=== PATIENT | male | born 1965 | race Caucasian/White ===

== ENCOUNTER 2017-04-21 14:31 | Emergency (ER) | payer BC, OTHER ==
[~2017-04-21] VITALS: Ht 175.3 cm; Wt 96.8 kg
[2017-04-21 14:42] VITALS: TEMP 36.9; Ht 175.3 cm; Wt 96.8 kg
--- NOTE | 2017-04-21 14:59 | EMERGENCY ROOM VISIT NOTE ---
History Report prepared by Tony: Major Wells Under the Supervision of: Dr. Lionel Kirkpatrick M.D. First contact with patient: 14:45 Chief Complaint: HEAD PAIN Stated Complaint: CUT ON HEAD,NAUSEA,DIZZY,HEADACH History of Present Illness The patient is a 51 year old male who presents to the Emergency Room with complaints of head injury prior to arrival. The patient was working in his yard when a tree branch fell on him. He had unknown LOC and when he came to, he was surrounded by puddle of blood. He had trouble walking and could not see properly which has since resolved. He did not bite his tongue. He states he has top of head pain, right shoulder pain, and right neck pain. He denies chest pain , abdominal pain, urinary and bowel incontinence. Of note, his tetanus is not up to date. He denies taking medication prior to arrival. He denies blood thinner use and any other medications. Of note, the patient is allergic to codeine. Source of History: patient Onset: [employer] Position: head Associated Symptoms: + LOC, No chest pain, No abdominal pain, No urinary symptoms Note: The patient states he has top of head pain, right shoulder pain, and right neck pain. Review of Systems See HPI for pertinent positives & negatives. A total of 10 systems reviewed and were otherwise negative. Past Medical & Surgical Medical Problems: (1) Bronchitis (2) Carpal tunnel syndrome (3) HTN (hypertension) (4) Pneumonia Surgical Problems: (1) S/P vasectomy Family History Patient reports no known family medical history. Social History Smoking Status: Never Smoker Alcohol Use: none Drug Use: none Marital Status: Housing Status: lives with family Occupation Status: employed Current/Historical Medications Scheduled Cephalexin Monohydrate (Keflex), 500 MG PO TID Ondasetron Odt (Zofran Odt), 4 MG SL Q6H Scheduled PRN Oxycodone Ir (Roxicodone Ir), 1-2 TAB PO Q4H PRN for Pain Allergies Coded Allergies: Codeine (Unverified Adverse Reaction, Unknown, "CLOUDY MIND,LOOPY", ) Physical Exam Vital Signs Date Time Temp Pulse Resp B/P (MAP) Pulse Ox O2 Delivery O2 Flow Rate FiO2 04/21/17 18:15 75 18 133/95 97 04/21/17 17:54 77 04/21/17 17:07 80 16 132/93 96 Room Air 04/21/17 16:24 71 18 154/101 99 Room Air 04/21/17 15:43 81 18 152/94 97 Room Air 04/21/17 15:10 90 04/21/17 14:42 36.9 88 20 162/110 96 Room Air Physical Exam GENERAL: Patient is uncomfortable appearing and in mild distress. HEENT: Hematoma with laceration of right parietal scalp. Mild venous oozing. Mucous membranes moist, no nasal congestion, no scleral icterus. NECK: Cervical collar. Mild tenderness of right posterior neck. No stridor, no adenopathy, no meningismus, trachea is midline. LUNGS: No dyspnea. Clear to auscultation and equal bilaterally. No wheeze, no rhonchi. HEART: Regular rate and rhythm. No murmurs, rubs, gallops appreciated. ABDOMEN: Soft, nontender, bowel sounds positive, no masses appreciated, no peritonitis. BACK: No midline tenderness, no CVA tenderness EXTREMITIES: Bruising over right upper should blade. Pain with ROM of right shoulder. No cyanosis, no edema. NEUROLOGIC: Alert and oriented, no acute motor or sensory deficits, no focal weakness, cranial nerves grossly intact. SKIN: No rash, no jaundice, no diaphoresis. Medical Decision & Procedures ER Provider Diagnostic Interpretation: Radiology results and stated below per my review and radiologist interpretation: CT OF THE HEAD WITHOUT CONTRAST CLINICAL HISTORY: Head injury with loss of consciousness. COMPARISON STUDY: No previous studies for comparison. TECHNIQUE: Helical axial images of the head were obtained without IV contrast. Automated exposure control was utilized for the study. A dose lowering technique was utilized adhering to the principles of ALARA. FINDINGS: No acute intracranial hemorrhage, midline shift or mass effect is present. Brain volume is normal. Ventricular system is normal. Basilar cisterns are patent. There are no extra-axial collections. [place]-white differentiation is maintained. There is no calvarial fracture. There is a moderate-sized right parietal scalp contusion and laceration. IMPRESSION: 1. No acute intracranial findings. 2. Right parietal scalp contusion and laceration. No calvarial fracture. Electronically signed by: Miguel Henson M.D. 04/21/2017 3:32 PM Dictated Date/Time: 04/21/2017 3:[address] OF THE CERVICAL SPINE WITHOUT CONTRAST CLINICAL HISTORY: head injury with LOC COMPARISON STUDY: Cervical spine radiographs December 22, 2009. TECHNIQUE: Helical axial images of the cervical spine were obtained without IV contrast. Sagittal and coronal reconstructions were viewed. A dose lowering technique was utilized adhering to the principles of ALARA. FINDINGS: Alignment of the cervical spine is anatomic. The craniocervical junction is intact. There is no acute cervical spine fracture. There is no prevertebral edema. There is moderate multilevel degenerative disc disease and facet arthrosis. IMPRESSION: No acute cervical spine fracture or subluxation. Electronically signed by: Miguel Henson M.D. 04/21/2017 3:34 PM Dictated Date/Time: 04/21/2017 3:[address] OF THE CHEST WITH IV CONTRAST CLINICAL HISTORY: post trauma posterior back pain COMPARISON STUDY: Chest radiograph April 08, 2015. TECHNIQUE: Following IV administration of 100 mL of Optiray-320, helical axial images of the chest were obtained. Sagittal and coronal reconstructions were viewed as well as maximal intensity projections on an independent 3-D workstation. A dose lowering technique was utilized adhering to the principles of ALARA. CT DOSE: 2675.71 mGy.cm FINDINGS: There is no evidence for traumatic injury to the thoracic aorta. The size of the heart is normal. There is no pericardial effusion. No enlarged thoracic lymph nodes are present. Central airways are patent. No pneumothorax or pulmonary contusion is present. No acute rib or thoracic spine fracture is identified. The abdomen and pelvis will be reported separately. IMPRESSION: No acute traumatic findings within the chest. Electronically signed by: Miguel Henson M.D. 04/21/2017 3:41 PM Dictated Date/Time: 04/21/2017 3:[address] OF THE ABDOMEN AND PELVIS WITH CONTRAST CLINICAL HISTORY: Back pain status post trauma. COMPARISON STUDY: CT of the abdomen and pelvis July 21, 2013. TECHNIQUE: Following IV administration of 100 mL of Optiray-320, axial images of the abdomen and pelvis were obtained from the lung bases to the proximal femurs. Images were reviewed in the axial, sagittal, and coronal planes. IV contrast was administered without complication. A dose lowering technique was utilized adhering to the principles of ALARA. FINDINGS: There is no evidence of traumatic injury to the liver, spleen, adrenal glands, kidneys or pancreas. There is a 7 mm cyst within the upper pole pf the right kidney. There is no biliary or pancreatic ductal dilatation. No hemoperitoneum or pneumoperitoneum is present. A fat-containing umbilical hernia is present. There is colonic diverticulosis without evidence for acute diverticulitis. No acute lumbar spine or pelvic fracture is identified. There is no lymphadenopathy. IMPRESSION: 1. No acute traumatic findings within the abdomen or pelvis. 2. Colonic diverticulosis without evidence for acute diverticulitis. Electronically signed by: Miguel Henson M.D. 04/21/2017 3:50 PM Dictated Date/Time: 04/21/2017 3:44 PM CHEST ONE VIEW PORTABLE CLINICAL HISTORY: Trauma. COMPARISON STUDY: Chest radiograph April 08, [address] performed earlier today. FINDINGS: There is no pneumothorax or pleural effusion. Lungs are clear. Cardiac size is normal. Mediastinal contours are normal. Pulmonary vascularity is normal. IMPRESSION: No acute cardiopulmonary findings. Electronically signed by: Miguel Henson M.D. 04/21/2017 5:09 PM Dictated Date/Time: 04/21/2017 5:08 PM R SHOULDER MIN 2 VIEWS ROUTINE CLINICAL HISTORY: Right shoulder pain following trauma. COMPARISON: None FINDINGS: Alignment of the right shoulder is anatomic. There is no acute fracture. There is moderate osteoarthritis of the right acromioclavicular joint. IMPRESSION: No acute fracture or dislocation of the right shoulder. Electronically signed by: Miguel Henson M.D. 04/21/2017 5:10 PM Dictated Date/Time: 04/21/2017 5:09 PM Laboratory Results 04/21/17 14:55 Red Blood Count 5.54, Mean Corpuscular Volume 88.3, Mean Corpuscular Hemoglobin 31.6, Mean Corpuscular Hemoglobin Concent 35.8, Mean Platelet Volume 9.0, Neutrophils (%) (Auto) 80.8, Lymphocytes (%) (Auto) 12.5, Monocytes (%) (Auto) 5.5, Eosinophils (%) (Auto) 0.5, Basophils (%) (Auto) 0.3, Neutrophils # (Auto) 15.23, Lymphocytes # (Auto) 2.35, Monocytes # (Auto) 1.04, Eosinophils # (Auto) 0.09, Basophils # (Auto) 0.05 04/21/17 14:55 Test 04/21/17 14:55 White Blood Count 18.84 K/uL (4.8-10.8) Red Blood Count 5.54 M/uL (4.7-6.1) Hemoglobin 17.5 g/dL (14.0-18.0) Hematocrit 48.9 % (42-52) Mean Corpuscular Volume 88.3 fL (80-100) Mean Corpuscular Hemoglobin 31.6 pg (25-34) Mean Corpuscular Hemoglobin Concent 35.8 g/dl (32-36) Platelet Count 266 K/uL (130-400) Mean Platelet Volume 9.0 fL (7.4-10.4) Neutrophils (%) (Auto) 80.8 % Lymphocytes (%) (Auto) 12.5 % Monocytes (%) (Auto) 5.5 % Eosinophils (%) (Auto) 0.5 % Basophils (%) (Auto) 0.3 % Neutrophils # (Auto) 15.23 K/uL (1.4-6.5) Lymphocytes # (Auto) 2.35 K/uL (1.2-3.4) Monocytes # (Auto) 1.04 K/uL (0.11-0.59) Eosinophils # (Auto) 0.09 K/uL (0-0.5) Basophils # (Auto) 0.05 K/uL (0-0.2) RDW Standard Deviation 42.5 fL (36.4-46.3) RDW Coefficient of Variation 13.1 % (11.5-14.5) Immature Granulocyte % (Auto) 0.4 % Immature Granulocyte # (Auto) 0.08 K/uL (0.00-0.02) Prothrombin Time 10.6 SECONDS (9.0-12.0) Prothromb Time International Ratio 1.0 (0.9-1.1) Activated Partial Thromboplast Time 24.4 SECONDS (21.0-31.0) Partial Thromboplastin Ratio 0.9 Anion Gap 9.0 mmol/L (3-11) Est Creatinine Clear Calc Drug Dose 93.9 ml/min Estimated GFR () 92.3 Estimated GFR (Non- 79.6 BUN/Creatinine Ratio 14.0 (10-20) Calcium Level 9.2 mg/dl (8.5-10.1) Total Creatine Kinase 171 U/L (39-308) Troponin I < 0.015 ng/ml (0-0.045) Laboratory results as reviewed by me. Medications Administered Medications (Trade) Dose Ordered Sig/Carly Route Start Time Stop Time Status Last Admin Dose Admin Diphtheria/ Pertussis/Tetanus Vacc (Adacel Inj) 0.5 ml ONCE ONCE IM. 04/21/17 15:00 04/21/17 15:01 DC 04/21/17 15:10 0.5 ML Cephalexin Monohydrate (Keflex Cap) 1,000 mg NOW ONCE PO 04/21/17 17:30 04/21/17 17:31 DC 04/21/17 17:41 1,000 MG Oxycodone HCl (Roxicodone Immediate Rel 5MG Home Pack) 1 homepack UD ONCE PO 04/21/17 17:30 04/21/17 17:31 DC 04/21/17 18:03 1 HOMEPACK Ondansetron HCl (ZOFRAN ODT 4MG Home Pack) 1 homepack UD ONCE PO 04/21/17 17:45 04/21/17 17:46 DC 04/21/17 18:03 1 HOMEPACK Procedure Location: Right posterior scalp Total length: 12 cm Complexity: Complex Verbal consent was obtained after the risks and benefits were explained, including but not limited to bleeding, scarring, infection, pain, and bone/joint /nerve damage. At this time, the risks of the procedure are less than the risks of NOT performing the procedure. A time out was taken and the correct patient and site identified. The skin was prepped with Betadine. The target area was anesthetized with 10 ml of 1% lidocaine without epinephrine. Copious irrigation was performed using saline and betadine. The skin was re-prepped with betadine and a sterile field set. The wound was explored for foreign bodies and none found. Examination revealed no injury to deep structures such as tendons, bone, or significant blood vessels. Moderate wound debridement was necessary. The wound edges were approximated using 5, 3-0 simple interrupted nylon sutures and 15 nba. Hemostasis and excellent approximation was achieved. Antibacterial ointment and a sterile dressing applied. Detailed wound care instructions and signs and symptoms of infection reviewed with the patient and his . No complications and the patient tolerated the procedure well. ECG Per My Interpretation Indication: syncope Rate (beats per minute): 88 Rhythm: normal sinus Findings: no acute ischemic change, no ectopy Change: EKG: Electrocardiogram per my interpretation. ED Course 1445: The patient was evaluated in room B1. A complete history and physical exam was performed. 1508: I checked on the patient and he has increasing thoracic back pain. 1552: I checked on the patient and he states he is out of breath. 1600: I checked on the patient and stapled his laceration. 1638: I informed the patient and his about laceration site management. 1725: I checked on the patient and he is doing well. His feels comfortable taking him home. 1730: Reevaluated the patient. Discussed results and discharge instructions: He and his verbalized understanding and agreement. The patient is ready for discharge. Medical Decision Differential: Intracranial Injury, Cervical Injury, Intrathoracic/Abdominal Injury, Neurologic Injuries, Fractures/Dislocations, Lacerations, Tetanus Status , amongst other pathologies entertained. 51 yr old male arrives post head injury from falling tree branch. Initially with some repetition though this has cleared by my evaluation. He has negative ICH/fracture by CT head, CT cervical clear, CT c/a/p without trauma either. Extensive rangel scan given head injury extent. Complex laceration repair by me which was difficult given parts of middle section essentially was destroyed and non-salvageable and thus had to bring large area together with sutures as well as secondary small parallel laceration with it after bringing sides together with nba, then further nba through middle section. I did copious wash out would prior and throughout closure. Despite this given dirty wound that has been open for a few hours now and required difficult closure, I feel it reasonable to start abx. He is awake, alert, oriented, answers questions correctly, is in no distress, has no neuro deficits, is breathing comfortably and wishes to go home. It has been several hours since injury and thus reasonable for discharge. Highly stressed PCP follow up in near future. With head and shoulder injury I feel that PO Narcotics reasonable and discussed their risks. WBC elevated but this is likely stress response given no infectious findings. Discussed nba/sutures out in 10-14 days given how large an area. I did discuss risks of infection, seroma, hematoma, chronic pain , hair growth issues, and possibility that it may need revision some day in the future. Discussed at length symptoms requiring RTED. He will be with his over next 48 hours. Discussed no driving for next day, and especially none if taking pain medications. Head Trauma GCS Score: 15 Medication Reconcilliation Current Medication List: was personally reviewed by me Blood Pressure Screening Patient's blood pressure: Elevated blood pressure Blood pressure disposition: Elevated BP felt to be situational Impression Primary Impression: Head injury, closed, with LOC of unknown duration Additional Impressions: Head injury, closed, with concussion Laceration of scalp Contusion of shoulder, right Concussion Leukocytosis Hypertension Scribe Attestation The scribe's documentation has been prepared under my direction and personally reviewed by me in its entirety. I confirm that the note above accurately reflects all work, treatment, procedures, and medical decision making performed by me. Departure Information Dispostion Home / Self-Care Prescriptions Ondasetron Odt (ZOFRAN ODT) 4 Mg Tab 4 MG SL Q6H for Nausea, #12 TAB Prov: Lionel Kirkpatrick M.D. 04/21/17 Cephalexin Monohydrate (Keflex) 500 Mg Cap 500 MG PO TID for 7 Days, #21 CAP Prov: Lionel Kirkpatrick M.D. 04/21/17 Oxycodone Ir (Roxicodone Ir) 5 Mg Tab 1-2 TAB PO Q4H Y for Pain, #15 TAB Prov: Lionel Kirkpatrick M.D. 04/21/17 Referrals Wilmer Rehman M.D. (PCP) Patient Instructions Concussion Dc, [facility], Trauma Head Additional Instructions Follow up with primary care provider for recheck in a few days. You should have sutures/nba removed in 10-14 days given wound size. Monitor for signs of infection. Your blood pressure was elevated during this visit. This is quite common in many people who are being evaluated in the Emergency Department for many reasons. However, it is important that you have your Primary Care Provider recheck your blood pressure and discuss whether treatment will be needed. director long term care elevated blood pressure can lead to strokes, heart attacks, kidney failure amongst other medical issues. If you develop severe headaches, chest pain, weakness in arms or legs, or other concerning symptoms call 911. You have received a narcotic pain medication prescription. These medications may cause drowsiness and should not be used with other sedative medications. Do not drive, drink alcohol, perform dangerous activities, nor make important decisions after taking these medications. senior care use or inappropriate use may lead to addiction. Problem Qualifiers
[2017-04-21] MEDS ORDERED: DIPHTHERIA/TETANUS/PERTUSSIS 0.5 ML SYR/VIAL IM. ONE (15:00)
[2017-04-21 15:02] LABS: BASO % 0.3 %; BASO ABS # 0.05 K/uL (0-0.2); EOS % 0.5 %; EOS ABS # 0.09 K/uL (0-0.5); HEMATOCRIT 48.9 % (42-52); HEMOGLOBIN 17.5 g/dL (14.0-18.0); IG# 0.08 K/uL (0.00-0.02); LYMPH % 12.5 %; LYMPH ABS # 2.35 K/uL (1.2-3.4); MEAN CELL VOLUME 88.3 fL (80-100); MEAN CORPUSCULAR HEMOGLOBIN 31.6 pg (25-34); MEAN CORPUSCULAR HGB CONC 35.8 g/dl (32-36); MONO % 5.5 %; MONO ABS # 1.04 K/uL (0.11-0.59); NEUT % 80.8 %; NEUT ABS # 15.23 K/uL (1.4-6.5); PLATELET COUNT 266 K/uL (130-400); RED CELL DISTRIBUTION WIDTH CV 13.1 % (11.5-14.5); RED CELL DISTRIBUTION WIDTH SD 42.5 fL (36.4-46.3); WHITE BLOOD COUNT 18.84 K/uL (4.8-10.8)
[2017-04-21 15:12] LABS: PTT PATIENT 24.4 SECONDS (21.0-31.0)
[2017-04-21 15:13] LABS: POTASSIUM 3.7 mmol/L (3.5-5.1); SODIUM 139 mmol/L (136-145)
[2017-04-21] MEDS ORDERED: OPTIRAY 320 IV PRN (15:15)
[2017-04-21 15:19] LABS: BLOOD UREA NITROGEN 15 mg/dl (7-18); CALCIUM 9.2 mg/dl (8.5-10.1); CARBON DIOXIDE 26 mmol/L (21-32); CREATININE 1.08 mg/dl (0.60-1.40); GLUCOSE 95 mg/dl (70-99)
--- NOTE | 2017-04-21 15:33 | DIAGNOSTIC IMAGING REPORT ---
CT OF THE HEAD WITHOUT CONTRAST CLINICAL HISTORY: Head injury with loss of consciousness. COMPARISON STUDY: No previous studies for comparison. TECHNIQUE: Helical axial images of the head were obtained without IV contrast. Automated exposure control was utilized for the study. A dose lowering technique was utilized adhering to the principles of ALARA. FINDINGS: No acute intracranial hemorrhage, midline shift or mass effect is present. Brain volume is normal. Ventricular system is normal. Basilar cisterns are patent. There are no extra-axial collections. [place]-white differentiation is maintained. There is no calvarial fracture. There is a moderate-sized right parietal scalp contusion and laceration. IMPRESSION: 1. No acute intracranial findings. 2. Right parietal scalp contusion and laceration. No calvarial fracture. Electronically signed by: Miguel Henson M.D. 04/21/2017 3:32 PM Dictated Date/Time: 04/21/2017 3:29 PM
--- NOTE | 2017-04-21 15:35 | DIAGNOSTIC IMAGING REPORT ---
CT OF THE CERVICAL SPINE WITHOUT CONTRAST CLINICAL HISTORY: head injury with LOC COMPARISON STUDY: Cervical spine radiographs December 22, 2009. TECHNIQUE: Helical axial images of the cervical spine were obtained without IV contrast. Sagittal and coronal reconstructions were viewed. A dose lowering technique was utilized adhering to the principles of ALARA. FINDINGS: Alignment of the cervical spine is anatomic. The craniocervical junction is intact. There is no acute cervical spine fracture. There is no prevertebral edema. There is moderate multilevel degenerative disc disease and facet arthrosis. IMPRESSION: No acute cervical spine fracture or subluxation. Electronically signed by: Miguel Henson M.D. 04/21/2017 3:34 PM Dictated Date/Time: 04/21/2017 3:32 PM
--- NOTE | 2017-04-21 15:42 | DIAGNOSTIC IMAGING REPORT ---
CT OF THE CHEST WITH IV CONTRAST CLINICAL HISTORY: post trauma posterior back pain COMPARISON STUDY: Chest radiograph April 08, 2015. TECHNIQUE: Following IV administration of 100 mL of Optiray-320, helical axial images of the chest were obtained. Sagittal and coronal reconstructions were viewed as well as maximal intensity projections on an independent 3-D workstation. A dose lowering technique was utilized adhering to the principles of ALARA. CT DOSE: 2675.71 mGy.cm FINDINGS: There is no evidence for traumatic injury to the thoracic aorta. The size of the heart is normal. There is no pericardial effusion. No enlarged thoracic lymph nodes are present. Central airways are patent. No pneumothorax or pulmonary contusion is present. No acute rib or thoracic spine fracture is identified. The abdomen and pelvis will be reported separately. IMPRESSION: No acute traumatic findings within the chest. Electronically signed by: Miguel Henson M.D. 04/21/2017 3:41 PM Dictated Date/Time: 04/21/2017 3:35 PM
--- NOTE | 2017-04-21 15:51 | DIAGNOSTIC IMAGING REPORT ---
CT OF THE ABDOMEN AND PELVIS WITH CONTRAST CLINICAL HISTORY: Back pain status post trauma. COMPARISON STUDY: CT of the abdomen and pelvis July 21, 2013. TECHNIQUE: Following IV administration of 100 mL of Optiray-320, axial images of the abdomen and pelvis were obtained from the lung bases to the proximal femurs. Images were reviewed in the axial, sagittal, and coronal planes. IV contrast was administered without complication. A dose lowering technique was utilized adhering to the principles of ALARA. FINDINGS: There is no evidence of traumatic injury to the liver, spleen, adrenal glands, kidneys or pancreas. There is a 7 mm cyst within the upper pole pf the right kidney. There is no biliary or pancreatic ductal dilatation. No hemoperitoneum or pneumoperitoneum is present. A fat-containing umbilical hernia is present. There is colonic diverticulosis without evidence for acute diverticulitis. No acute lumbar spine or pelvic fracture is identified. There is no lymphadenopathy. IMPRESSION: 1. No acute traumatic findings within the abdomen or pelvis. 2. Colonic diverticulosis without evidence for acute diverticulitis. Electronically signed by: Miguel Henson M.D. 04/21/2017 3:50 PM Dictated Date/Time: 04/21/2017 3:44 PM
[2017-04-21] MEDS ORDERED: LIDOCAINE/EPINEPHRINE 1% 20 ML VIAL INFIL ONE (16:00)
--- NOTE | 2017-04-21 17:10 | DIAGNOSTIC IMAGING REPORT ---
CHEST ONE VIEW PORTABLE CLINICAL HISTORY: Trauma. COMPARISON STUDY: Chest radiograph April 08, [address] performed earlier today. FINDINGS: There is no pneumothorax or pleural effusion. Lungs are clear. Cardiac size is normal. Mediastinal contours are normal. Pulmonary vascularity is normal. IMPRESSION: No acute cardiopulmonary findings. Electronically signed by: Miguel Henson M.D. 04/21/2017 5:09 PM Dictated Date/Time: 04/21/2017 5:08 PM
--- NOTE | 2017-04-21 17:11 | DIAGNOSTIC IMAGING REPORT ---
R SHOULDER MIN 2 VIEWS ROUTINE CLINICAL HISTORY: Right shoulder pain following trauma. COMPARISON: None FINDINGS: Alignment of the right shoulder is anatomic. There is no acute fracture. There is moderate osteoarthritis of the right acromioclavicular joint. IMPRESSION: No acute fracture or dislocation of the right shoulder. Electronically signed by: Miguel Henson M.D. 04/21/2017 5:10 PM Dictated Date/Time: 04/21/2017 5:09 PM
[2017-04-21] MEDS ORDERED: CEPHALEXIN MONOHYDRATE 250 MG CAP PO ONE (17:30)
[2017-04-21] MEDS ORDERED: OXYCODONE IR HOME PACK PO ONE (17:30)
[2017-04-21] MEDS ORDERED: ONDANSETRON HOME PACK 4MG OD TAB PO ONE (17:45)
[2017-04-21] MEDS ORDERED: CEPH500C PO ×2 (17:48→18:05)
[2017-04-21] MEDS ORDERED: OXYC1TAB3 PO ×2 (17:48→18:05)
[2017-04-21] MEDS ORDERED: ONDA4TAB10 SL (18:05)
[2017-04-21 18:15] VITALS: BP 133/95; PULSE 75; O2SAT 97
== END 2017-04-21 18:20 | disposition home or self-care (01) ==
LOC: C.EDB 14:33
DX: S06.0X9A Concussion with loss of consciousness of unspecified duration, initial encounter (principal); S01.01XA Laceration without foreign body of scalp, initial encounter; S40.011A Contusion of right shoulder, initial encounter; M54.2 Cervicalgia; D72.829 Elevated white blood cell count, unspecified; I10 Essential (primary) hypertension; Z23 Encounter for immunization; W20.8XXA Other cause of strike by thrown, projected or falling object, initial encounter; Y93.H9 Activity, other involving exterior property and land maintenance, building and construction; Y92.007 Garden or yard of unspecified non-institutional (private) residence as the place of occurrence of the external cause; Z88.6 Allergy status to analgesic agent

== ENCOUNTER → 2017-07-26 | Outpatient (CLI) | payer OTHER ==
[~2017-07-26] MED LIST: ONDA4TAB10 SL; OPTIRAY 320 IV PRN; OXYC1TAB3 PO
--- NOTE | 2017-07-26 12:55 | DIAGNOSTIC IMAGING REPORT ---
ABD/PELVIS IV AND ORAL CONT CLINICAL HISTORY: 52 years-old Male presenting with ABDOMINAL PAIN, left lower quadrant pain. TECHNIQUE: Multidetector CT of the abdomen and pelvis was performed after the administration of oral and intravenous contrast. IV contrast: 120 mL of Optiray 320. A dose lowering technique was used consistent with the principles of ALARA (as low as reasonably achievable). COMPARISON: 04/21/2017. CT DOSE (mGy.cm): The estimated cumulative dose is 994.89 mGycm. FINDINGS: Director Speech topogram: Vasectomy clips noted. Lung bases: Lungs and pleural spaces clear. Normal heart size. No pericardial or pleural effusion. Liver: Normal morphology. No liver lesion. Patent hepatic vasculature. Biliary: No intrahepatic or extrahepatic biliary ductal dilatation. Normal gallbladder. Pancreas: Normal. Spleen: Normal. Adrenal glands: Normal. Kidneys and ureters: Subcentimeter hypodensity in the upper pole the right kidney likely simple cyst but too small to characterize. No nephrolithiasis. No hydronephrosis. Normal ureters. Bladder: Mild circumferential bladder wall thickening. Pelvic organs: Prostate and seminal vesicles normal. Vasectomy clips noted. Bowel: Diverticulosis of the descending and sigmoid colon. Significant wall thickening and pericolonic inflammatory change at the proximal sigmoid colon. Single tiny foci of gas that may be extraluminal versus contained within a diverticulum (series 3 image 316). No evidence of abscess though there is significant adjacent peritoneal thickening. Several loops of small bowel may be adhesed to the inflamed omental or mesenteric fat. No bowel obstruction. The appendix is normal. Peritoneal cavity: Trace fluid in the rectoprostatic recess. No free intraperitoneal gas though the small focus of possible extraluminal gas is noted as mentioned. Lymph nodes: No enlarged lymph nodes in the abdomen or pelvis. Vasculature: Aorta and IVC patent and normal in caliber. Abdominal wall: Mild skin thickening and subcutaneous infiltration in the lower abdominal wall, nonspecific. Musculoskeletal: Normal. IMPRESSION: 1. Findings consistent with acute diverticulitis of the proximal sigmoid colon. A tiny focus of gas in the left lower quadrant may either be extraluminal or within a diverticulum. No free intraperitoneal gas. No well-formed abscess. No other complication. 2. Trace fluid in the pelvis likely reactive. 3. Mild circumferential bladder wall thickening may be reactive to the diverticulitis or indicate chronic bladder outlet obstruction. 4. Mild skin thickening and subcutaneous infiltration along the lower abdominal wall. Correlate clinically to exclude mild cellulitis. Electronically signed by: Francis Guevara M.D. 07/26/2017 12:53 PM Dictated Date/Time: 07/26/2017 12:45 PM
== END | disposition home or self-care (01) ==
LOC: C.CTS 10:13
PROVIDERS: ATTEND Family Medicine
DX: R10.32 Left lower quadrant pain (principal)